=== PATIENT | female | born 2000 | race Caucasian/White ===

== ENCOUNTER 2021-08-01 22:37 | Inpatient (IN) | payer MEDICAID ==
[2021-08-01] MEDS ORDERED: Ondansetron 4 MG/2 ML SDV IVPUSH ONE (23:17)
[2021-08-01] MEDS ORDERED: Iopamidol 612 MG/ML 100 ML Bottle IV STA (23:30)
[2021-08-01] MEDS ORDERED: Sodium Chloride 0.9% 1,000 ML IV SCH (23:30)
[2021-08-01] MEDS ORDERED: Sodium Chloride 0.9% 75 ML IV STA (23:31)
[2021-08-02] MEDS ORDERED: Potassium Chloride 20 MEQ in Premix Bag 2 BAG IV ONE ×2 (00:12→00:37)
[2021-08-02] MEDS ORDERED: Lidocaine 1% 5 ML VIAL INJECT PRN (00:12)
[2021-08-02] MEDS ORDERED: Potassium Chloride 100 ML ONE (00:32)
[2021-08-02] MEDS ORDERED: Potassium Chloride 20 MEQ in Premix Bag 1 BAG IV ONE (02:30)
[2021-08-02 03:36] LABS: CORONAVIRUS COVID-19 NAA NEGATIVE (NEGATIVE)
[2021-08-02] MEDS: Sodium Chloride 0.9% 1,000 ML IV SCH ×2 (03:47→20:20)
[2021-08-02] MEDS: Ondansetron 4 MG/2 ML SDV IV PRN ×4 (04:09→20:20)
[2021-08-02] MEDS: HYDROmorphone 0.5 MG/0.5 ML Syringe IVPUSH PRN ×2 (04:26→12:05)
[2021-08-02] MEDS ORDERED: Potassium Chloride Riders 40 MEQ in Premix Bag 1 BAG IV ONE ×3 (09:30)
[2021-08-02] MEDS: Bisacodyl 10 MG Supp RECTAL SCH ×2 (12:01→22:05)
[2021-08-02] MEDS: Azithromycin 125 MG in Sodium Chloride 0.9% 150 ML IV SCH (14:44)
[2021-08-02] MEDS: LORazepam 2 MG/ML SDV IVPUSH PRN (17:42)
[2021-08-02] MEDS ORDERED: Scopolamine 1.5 MG Transdermal Patch TRDERM ONE (18:00)
[2021-08-03] MEDS: Azithromycin 125 MG in Sodium Chloride 0.9% 150 ML IV SCH ×2 (00:27→11:42)
[2021-08-03] MEDS: Ondansetron 4 MG/2 ML SDV IV PRN ×3 (00:54→17:11)
[2021-08-03] MEDS: HYDROmorphone 0.5 MG/0.5 ML Syringe IVPUSH PRN ×3 (01:00→18:19)
[2021-08-03] MEDS: Sodium Chloride 0.9% 1,000 ML IV SCH (05:24)
[2021-08-03] MEDS: LORazepam 2 MG/ML SDV IVPUSH PRN ×2 (09:34→16:24)
[2021-08-03] MEDS: CHECK PATCH DAILY TOP SCH (09:35)
[2021-08-03] MEDS: Bisacodyl 10 MG Supp RECTAL SCH (09:41)
[2021-08-03] MEDS ORDERED: Potassium Chloride 20 MEQ Tab.ER PO ONE ×2 (09:45→17:00)
[2021-08-03] MEDS ORDERED: Acetaminophen 325 MG Tab PO PRN (10:35)
[2021-08-03] MEDS ORDERED: LORazepam 2 MG/ML SDV IVPUSH ONE (17:14)
[2021-08-04] MEDS: Azithromycin 125 MG in Sodium Chloride 0.9% 150 ML IV SCH ×3 (00:15→23:34)
[2021-08-04] MEDS: HYDROmorphone 0.5 MG/0.5 ML Syringe IVPUSH PRN (00:19)
[2021-08-04] MEDS: Ondansetron 4 MG/2 ML SDV IV PRN (00:19)
[2021-08-04] MEDS: CHECK PATCH DAILY TOP SCH (08:06)
[2021-08-04] MEDS ORDERED: Ibuprofen 600 MG Tab PO PRN (10:40)
[2021-08-04] MEDS ORDERED: Potassium Chloride 20 MEQ, Lidocaine 1% 2 ML in Sodium Chloride 0.9% 100 ML IV SCH (11:15)
[2021-08-05 08:54] VITALS: BP 126/70; PULSE 78
[2021-08-05] MEDS: CHECK PATCH DAILY TOP SCH (09:51)
== END 2021-08-05 10:46 | disposition home or self-care (01) | DRG 394 ==
LOC: JP.ED 22:37 → JP.MS 08-02 03:36
PROVIDERS: ADMIT Family Medicine; ATTEND Internal Medicine
DX: K91.89 Other postprocedural complications and disorders of digestive system (principal); K56.0 Paralytic ileus; Y83.8 Other surgical procedures as the cause of abnormal reaction of the patient, or of later complication, without mention of misadventure at the time of the procedure; Y82.8 Other medical devices associated with adverse incidents; E87.6 Hypokalemia; E86.0 Dehydration; Z20.822 Contact with and (suspected) exposure to COVID-19; Z90.49 Acquired absence of other specified parts of digestive tract
CPT/HCPCS: 0241U; 36415; 74177; 80048; 80053; 83605; 83690; 84132; 85025; 96361; 96365; 96366; 96375; 99284; 99285-25; A9270-GY; J0456; J1170; J2060; J2405; J3480; J3490; J7030; Q9967

== ENCOUNTER 2024-03-05 08:29 | Emergency (ER) | payer MEDICAID, OTHER ==
[2024-03-05 08:56] VITALS: BP 127/77; PULSE 81
[2024-03-05 09:16] LABS: BASOPHILS PERCENT AUTO 0.1 % (0.1-1.3); HEMATOCRIT 37.6 % (34.3-46.0); HEMOGLOBIN 13.2 g/dL (11.2-15.5); IMMATURE GRAN ABSOLUTE AUTO 0.04 K/uL (0.00-0.23); IMMATURE GRAN PERCENT AUTO 0.4 % (0.0-0.7); LYMPHOCYTES ABSOLUTE AUTO 1.17 K/uL (0.8-3.3); LYMPHOCYTES PERCENT AUTO 10.7 % (11.4-47.7); MEAN CORPUSCULAR HEMOGLOBIN 30.9 pg (31.6-35.5); MEAN CORPUSCULAR HGB CONC 35.1 g/dL (31.6-35.5); MEAN CORPUSCULAR VOLUME 88.1 fL (81.4-99.0); MONOCYTES PERCENT AUTO 6.4 % (3.3-12.6); NEUTROPHILS ABSOLUTE AUTO 8.98 K/uL (1.0-7.6); NEUTROPHILS PERCENT AUTO 82.4 % (40.0-78.1); PLATELET COUNT,PLT 279 K/uL (130-375); RED BLOOD CELL COUNT 4.27 M/uL (3.77-5.24); WHITE BLOOD CELL COUNT,WBC 10.9 K/uL (3.2-11.0)
[2024-03-05] MEDS: Ondansetron 4 MG Tab.DIS PO ONE (09:17)
[2024-03-05] MEDS: Sodium Chloride 0.9% 1,000 ML IV ONE (09:17)
[2024-03-05] MEDS: Ondansetron 4 MG/2 ML SDV IVPUSH ONE (09:17)
[2024-03-05 09:21] LABS: APPEARANCE,URINE CLEAR (CLEAR); BILIRUBIN,URINE NEGATIVE (NEGATIVE); GLUCOSE,URINE NEGATIVE (NEGATIVE); KETONES,URINE 40 mg/dL (NEGATIVE); LEUKOCYTE ESTERASE,URINE NEGATIVE (NEGATIVE); NITRITE,URINE NEGATIVE (NEGATIVE); OCCULT BLOOD,URINE TRACE-INTACT (NEGATIVE); PROTEIN,URINE 100 mg/dL (NEGATIVE); UROBILINOGEN,URINE 0.2 EU/dL (0.2-1.0)
[2024-03-05 09:24] LABS: BASOPHILS ABSOLUTE AUTO 0.01 K/uL (0.00-0.10)
[2024-03-05 09:26] LABS: COLOR,URINE OTHER (YELLOW)
[2024-03-05 09:27] LABS: AMORPHOUS SEDIMENT,URINE NOT SEEN; AMPHETAMINES SCREEN, URINE NEGATIVE (NEGATIVE); BACTERIA,URINE FEW; BARBITURATE SCREEN,URINE NEGATIVE (NEGATIVE); BENZODIAZEPINES SCREEN,URINE NEGATIVE (NEGATIVE); EPITHELIAL CELLS,URINE MODERATE; METHADONE SCREEN, URINE NEGATIVE (NEGATIVE); METHAMPHETAMINES SCREEN, URINE NEGATIVE (NEGATIVE); MUCUS,URINE MANY; OXYCODONE SCREEN,URINE NEGATIVE (NEGATIVE); PROPOXYPHENE SCREEN,URINE NEGATIVE (NEGATIVE); THC SCREEN,URINE 50 NG/ML PRESUMPTIVE POSITIVE (NEGATIVE); WBC,URINE 0-5 (0-5)
[2024-03-05 09:36] LABS: A/G RATIO 1.4 (1.2-2.2); ALANINE AMINOTRANSFERASE,ALT 32 U/L (12-78); ALBUMIN 4.8 g/dL (3.4-5.0); ALKALINE PHOSPHATASE 58 U/L (46-116); ASPARTATE AMNIOTRANSFERASE,AST 34 U/L (15-37); BILIRUBIN TOTAL 1.4 mg/dL (0.2-1.0); BLOOD UREA NITROGEN,BUN 15 mg/dL (7-18); CALCIUM 9.5 mg/dL (8.5-10.1); CARBON DIOXIDE,CO2 30 mmol/L (21-32); CHLORIDE,CL 97 mmol/L (100-108); CREATININE 0.9 mg/dL (0.6-1.0); EST CRCL DRUG DOSING (CG) 81.11 mL/min; ESTIMATED GFR 93 mL/min (>60); GLUCOSE RANDOM 119 mg/dL (74-106); POTASSIUM,K 3.1 mmol/L (3.6-5.2); PROTEIN TOTAL,TP 8.2 g/dL (6.4-8.2); SODIUM,NA 139 mmol/L (140-148)
[2024-03-05 09:37] LABS: ANION GAP 15.1 mmol/L (5.0-14.0)
[2024-03-05] MEDS: Prochlorperazine 10 MG/2 ML SDV IVPUSH ONE (09:56)
[2024-03-05] MEDS: NS + KCl 20mEq/L 1,000 ML IV SCH (11:47)
[2024-03-05] MEDS: Potassium Chloride 10 MEQ Cap.ER PO ONE (12:45)
== END 2024-03-05 13:35 | disposition home or self-care (01) ==
LOC: JP.ED 08:29
DX: E86.0 Dehydration (principal); R11.2 Nausea with vomiting, unspecified; E87.6 Hypokalemia; Z90.49 Acquired absence of other specified parts of digestive tract
CPT/HCPCS: 36415; 74176; 80053; 80305; 81001; 81025; 83605; 83690; 85025; 87428; 96361; 96365; 96375; 99284; A9270; J0780; J2405; J3480; J7030

== ENCOUNTER 2024-03-06 07:42 | Emergency (ER) | payer OTHER ==
[2024-03-06 08:29] LABS: BASOPHILS PERCENT AUTO 0.1 % (0.1-1.3); EOSINOPHILS PERCENT AUTO 0.1 % (0.0-5.4); HEMATOCRIT 35.9 % (34.3-46.0); HEMOGLOBIN 12.7 g/dL (11.2-15.5); IMMATURE GRAN PERCENT AUTO 0.3 % (0.0-0.7); LYMPHOCYTES ABSOLUTE AUTO 1.65 K/uL (0.8-3.3); LYMPHOCYTES PERCENT AUTO 21.1 % (11.4-47.7); MEAN CORPUSCULAR HGB CONC 35.4 g/dL (31.6-35.5); MEAN CORPUSCULAR VOLUME 87.6 fL (81.4-99.0); MONOCYTES PERCENT AUTO 5.1 % (3.3-12.6); NEUTROPHILS ABSOLUTE AUTO 5.74 K/uL (1.0-7.6); NEUTROPHILS PERCENT AUTO 73.3 % (40.0-78.1); PLATELET COUNT,PLT 248 K/uL (130-375); WHITE BLOOD CELL COUNT,WBC 7.8 K/uL (3.2-11.0)
[2024-03-06 08:32] LABS: BASOPHILS ABSOLUTE AUTO 0.01 K/uL (0.00-0.10); EOSINOPHILS ABSOLUTE AUTO 0.01 K/uL (0.00-0.40); IMMATURE GRAN ABSOLUTE AUTO 0.02 K/uL (0.00-0.23)
[2024-03-06] MEDS: Haloperidol Lactate 5 MG/ML SDV IVPUSH ONE (08:33)
[2024-03-06] MEDS: Lactated Ringers 1,000 ML IV ONE ×2 (08:41→09:59)
[2024-03-06] MEDS: Sodium Chloride 0.9% 10 ML Syringe FLUSH PRN (08:41)
[2024-03-06 08:50] LABS: A/G RATIO 1.5 (1.2-2.2); ALANINE AMINOTRANSFERASE,ALT 35 U/L (12-78); ALBUMIN 4.5 g/dL (3.4-5.0); ALKALINE PHOSPHATASE 51 U/L (46-116); ASPARTATE AMNIOTRANSFERASE,AST 27 U/L (15-37); BILIRUBIN TOTAL 1.8 mg/dL (0.2-1.0); BLOOD UREA NITROGEN,BUN 9 mg/dL (7-18); CALCIUM 9.2 mg/dL (8.5-10.1); CARBON DIOXIDE,CO2 27 mmol/L (21-32); CHLORIDE,CL 100 mmol/L (100-108); CREATININE 0.7 mg/dL (0.6-1.0); EST CRCL DRUG DOSING (CG) 104.28 mL/min; ESTIMATED GFR 125 mL/min (>60); GLUCOSE RANDOM 105 mg/dL (74-106); PROTEIN TOTAL,TP 7.5 g/dL (6.4-8.2); SODIUM,NA 138 mmol/L (140-148)
[2024-03-06] MEDS ORDERED: Potassium Chloride 10 MEQ in Premix Bag 1 BAG IV SCH (09:15)
[2024-03-06] MEDS: Potassium Chloride 20 MEQ in Premix Bag 1 BAG IV ONE (09:27)
[2024-03-06 09:30] VITALS: BP 110/74
[2024-03-06 11:23] VITALS: PULSE 94
== END 2024-03-06 12:27 | disposition home or self-care (01) ==
LOC: JP.ED 07:42
DX: R11.2 Nausea with vomiting, unspecified (principal); Z90.49 Acquired absence of other specified parts of digestive tract; Z79.899 Other long term (current) drug therapy
CPT/HCPCS: 36415; 80053; 83605; 83690; 85025; 96361; 96365; 96366; 96375; 99284; J1630; J3480; J7120

== ENCOUNTER 2025-02-03 06:18 | Emergency (ER) | payer OTHER ==
[2025-02-03] MEDS: Ondansetron 4 MG/2 ML SDV IVPUSH ONE (07:02)
[2025-02-03 07:18] LABS: BASOPHILS PERCENT AUTO 0.1 % (0.1-1.3); EOSINOPHILS PERCENT AUTO 0.0 % (0.0-5.4); IMMATURE GRAN ABSOLUTE AUTO 0.11 K/uL (0.00-0.23); IMMATURE GRAN PERCENT AUTO 0.7 % (0.0-0.7); LYMPHOCYTES ABSOLUTE AUTO 1.03 K/uL (0.8-3.3); LYMPHOCYTES PERCENT AUTO 6.2 % (11.4-47.7); MONOCYTES ABSOLUTE AUTO 0.16 K/uL (0.20-0.90); MONOCYTES PERCENT AUTO 1.0 % (3.3-12.6); NEUTROPHILS ABSOLUTE AUTO 15.34 K/uL (1.0-7.6); NEUTROPHILS PERCENT AUTO 92.0 % (40.0-78.1); PLATELET COUNT,PLT 323 K/uL (130-375); RED BLOOD CELL COUNT 3.94 M/uL (3.77-5.24); WHITE BLOOD CELL COUNT,WBC 16.7 K/uL (3.2-11.0)
[2025-02-03 07:20] LABS: BASOPHILS ABSOLUTE AUTO 0.02 K/uL (0.00-0.10); EOSINOPHILS ABSOLUTE AUTO 0.00 K/uL (0.00-0.40)
[2025-02-03 07:30] LABS: ALANINE AMINOTRANSFERASE,ALT 19 U/L (12-78); ASPARTATE AMNIOTRANSFERASE,AST 23 U/L (15-37); BILIRUBIN TOTAL 0.7 mg/dL (0.2-1.0); BLOOD UREA NITROGEN,BUN 9 mg/dL (7-18); CARBON DIOXIDE,CO2 24 mmol/L (21-32); CHLORIDE,CL 98 mmol/L (100-108); CREATININE 0.5 mg/dL (0.6-1.0); EST CRCL DRUG DOSING (CG) 151.11 mL/min; ESTIMATED GFR 135 mL/min (>60); GLUCOSE RANDOM 136 mg/dL (74-106); POTASSIUM,K 3.2 mmol/L (3.6-5.2); PROTEIN TOTAL,TP 7.2 g/dL (6.4-8.2); SODIUM,NA 133 mmol/L (140-148)
[2025-02-03 07:31] LABS: A/G RATIO 0.9 (1.2-2.2)
[2025-02-03 07:35] LABS: LACTIC ACID 1.6 mmol/L (0.4-2.0)
[2025-02-03] MEDS: NS + KCl 20mEq/L 1,000 ML IV SCH (08:24)
[2025-02-03 08:37] LABS: CORONAVIRUS COVID-19 NAA NEGATIVE (NEGATIVE); INFLUENZA A NAA NEGATIVE (NEGATIVE); INFLUENZA B NAA NEGATIVE (NEGATIVE); RESPIRATORY SYNCYTIAL VIR NAA NEGATIVE (NEGATIVE)
[2025-02-03 09:43] LABS: APPEARANCE,URINE CLEAR (CLEAR); GLUCOSE,URINE NEGATIVE (NEGATIVE); OCCULT BLOOD,URINE TRACE-INTACT (NEGATIVE)
[2025-02-03 09:50] LABS: SQUAMOUS EPITHELIAL CELLS,UR MODERATE /HPF
[2025-02-03] MEDS: Capsaicin 0.025% Crm 60 GM Tube TOP PRN (10:42)
[2025-02-03 11:45] VITALS: BP 143/86; PULSE 82
== END 2025-02-03 12:01 | disposition other institution (70) ==
LOC: JP.ED 06:18
DX: O99.323 Drug use complicating pregnancy, third trimester (principal); F12.10 Cannabis abuse, uncomplicated; O21.0 Mild hyperemesis gravidarum; O14.93 Unspecified pre-eclampsia, third trimester; Z3A.33 33 weeks gestation of pregnancy; Z90.49 Acquired absence of other specified parts of digestive tract; Z79.899 Other long term (current) drug therapy
CPT/HCPCS: 36415; 80053; 81001; 83605; 85025; 87040; 87210; 87637; 96361; 96365; 96366; 96367; 96368; 96375; 99284; A9270; J2405; J2550; J2765; J3411; J3480; J7030